=== PATIENT | male | born 1965 | race Caucasian/White ===

== ENCOUNTER → 2018-03-08 11:46 | Outpatient (CLI) | payer BC, SELFPAY ==
--- NOTE | 2018-03-08 11:52 | XR_ITS ---
XR knee LT 3V HISTORY: ITS.REASON: CHRONIC KNEE PAIN ORDERING PHYSICIAN: Oleksandr Brunner MD PATIENT AGE: 52 years FINDINGS: There are mild osteoarthritic changes of the medial compartment and patellofemoral joint. No fracture or dislocation. No lytic or blastic change. No obvious knee joint effusion in the suprapatellar region. IMPRESSION: Mild osteoarthritis of the medial compartment
--- NOTE | 2018-03-08 11:52 | XR_ITS ---
XR knee RT 3V HISTORY: ITS.REASON: ACUTE KNEE PAIN ORDERING PHYSICIAN: Oleksandr Brunner MD PATIENT AGE: 52 years FINDINGS: There is slight decrease in the joint space medially and patellofemoral joint consistent with mild osteoarthritis. No fracture or dislocation. No lytic or blastic change. 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
== END ==
PROVIDERS: PCP Family Medicine; Visit Provider Family Medicine
DX: M25.561 Pain in right knee (principal); M25.562 Pain in left knee
CPT/HCPCS: 73562

== ENCOUNTER 2023-11-19 18:18 | Outpatient (CLI) | payer OTHER, SELFPAY ==
[2023-11-19 17:40] LABS: Coronavirus 19, PCR Not Detected (NotDetected); Influenza B, PCR Not Detected (NotDetected)
[2023-11-19 17:58] LABS: Basophils % 0.5 % (0.1-2.0); Eosinophils # 0.1 K/mm3 (0.0-0.4); Eosinophils % 1.6 % (0.1-12.0); Hematocrit 41.1 % (42.0-52.0); Hemoglobin 14.4 g/dL (14.1-18.0); Lymphocytes # 0.8 K/mm3 (0.7-4.5); Lymphocytes % 16.4 % (10-50); Mean Corpuscular HGB Conc 35.1 g/dL (31.8-35.4); Mean Corpuscular Hemoglobin 33.1 pg (27.0-31.2); Mean Corpuscular Volume 94.2 fl (80-94); Mean Platelet Volume 8.1 fl (7.4-10.4); Monocytes # 0.6 K/mm3 (0.1-1.0); Monocytes % 13.3 % (1.7-9.3); Neutrophils # 3.2 K/mm3 (1.8-7.8); Neutrophils % 68.2 % (37.0-80.0); Platelet Count 249 K/mm3 (142-424); Red Blood Count 4.36 M/mm3 (4.60-6.20); Red Cell Distribution Width 13.2 % (11.5-17.5); White Blood Count 4.6 K/mm3 (4.8-10.8)
[2023-11-19 17:59] LABS: Chloride 105 mmol/L (98-107); Potassium 3.9 mmoL/L (3.5-5.1); Sodium 136 mmol/L (136-145)
[2023-11-19 18:02] LABS: Alanine Aminotransferase 28 U/L (12-78); Albumin Level 4.2 g/dl (3.5-5.0); Albumin/Globulin Ratio 1.7 (1.1-1.8); Alkaline Phosphatase 72 U/L (38-126); Anion Gap 9.9 mEq/L (5-15); Aspartate Amino Transferase 27 U/L (17-59); Bilirubin,Total 0.6 mg/dl (0.2-1.3); Blood Urea Nitrogen 14 mg/dl (9-20); Carbon Dioxide 25 mmol/L (22.0-30.0); Estimated Glomerular Filt Rate 69 ml/min (>60); GFR (African American) 84 ML/MIN (>60); Globulin 2.5 g/dL (1.3-3.2); Total Protein,Serum 6.7 g/dl (6.3-8.2)
[2023-11-19 18:03] LABS: Calcium 8.8 mg/dl (8.4-10.2); Glucose 109 mg/dl (74-100)
[2023-11-19 18:45] LABS: Influenza A, PCR Detected (NotDetected)
== END 2023-11-19 23:59 ==
LOC: LAB.DROPOF 18:18
PROVIDERS: Visit Provider Family Medicine
DX: J02.9 Acute pharyngitis, unspecified (principal); R05.9 Cough, unspecified; R19.7 Diarrhea, unspecified; R11.0 Nausea; B95.0 Streptococcus, group A, as the cause of diseases classified elsewhere; J09.X2 Influenza due to identified novel influenza A virus with other respiratory manifestations
CPT/HCPCS: 80053; 85025; 87636